=== PATIENT | male | born 1955 | race Caucasian/White ===

== ENCOUNTER 2025-02-28 09:12 | Emergency (ER) | payer OTHER, SELFPAY ==
[2025-02-28] VITALS (7 sets, daily range): BP systolic 124–135; BP diastolic 64–83; PULSE 69–73; RESP 18; TEMP 36.6; O2SAT 93–96; BMI 34.1
--- NOTE | 2025-02-28 10:21 | EKG_ITS ---
[place] [id number] [place] [id number] Test Date: 2025-02-28 Pat Name: Enrique Khoury Department: [facility] Room: Gender: Male Machine Ii Coremaker: YARI : 1955 Requested By: Order Number: [id number] Reading MD: Khoi Srinivasan Measurements Intervals [place] Rate: 75 P: 61 WI: 188 QRS: 27 QRSD: 164 T: 25 QT: 426 QTc: 475 Interpretive Statements Normal sinus rhythm with sinus arrhythmia Right bundle branch block Septal infarct , age undetermined Electronically Signed On 03-02-2025 13:44:13 PDT by Khoi Srinivasan
[2025-02-28 10:26] LABS: Add Manual Diff / Slide Review NO; Hematocrit 48.1 % (41-53); Hemoglobin 16.5 g/dL (13.5-17.5); Lymphocytes Absolute Auto 3500 /uL (1100-4500); Mean Corpuscular HGB Conc 34.3 % (30-36); Mean Corpuscular Hemoglobin 31.6 PG (26-34); Mean Corpuscular Volume 92.3 fL (80-100); Platelet Count 150 X10^3/uL (150-400)
[2025-02-28 10:30] LABS: Alanine Aminotransferase 25 IU/L (<50); Albumin 4.6 g/dL (3.5-5.0); Albumin Globulin Ratio 1.5 (1.0-2.8); Alkaline Phosphatase 88 U/L (38-126); Blood Urea Nitrogen 16 mg/dL (9-20); Calcium 9.7 mg/dL (8.4-10.2); Carbon Dioxide 27 mmol/L (22-32); Chloride 102 mmol/L (98-107); Estimated Glomerular Filt Rate > 60 mL/min (>60); Globulin 3.1 g/dL (1.7-4.1); Glucose 145 mg/dL (70-99); HEMOLYSIS < 15 (0-50); Lipase 69 U/L (23-300); Potassium 4.6 mmol/L (3.4-5.1); Sodium 138 mmol/L (137-145); Total Protein 7.7 g/dL (6.3-8.2)
--- NOTE | 2025-02-28 11:55 | ED_ITS ---
HPI - Abdominal Pain General Chief Complaint: Abdominal Pain Stated Complaint: lower left stomach pain x 1 day Time Seen by Provider: 02/28/25 11:27 Source: patient Mode of arrival: Ambulatory History of Present Illness HPI narrative: 69-year-old male who is here on vacation having acute left lower abdominal pain that started after a meal of ribs last night. Patient denies any prior GI or abdominal issues. No history of abdominal surgeries. Patient denies any symptoms. No other GI symptoms she was having acute dull pain currently maybe a 01/25. Related Data Previous Rx's ?Medication ?Instructions ?Recorded amoxicillin 875 mg-potassium 1 tab PO Q8H #30 tabs clavulanate 125 mg tablet Allergies Allergy/AdvReac Type Severity Reaction Status Date / Time No Known Drug Allergies Allergy Verified 02/28/25 09:36 Review of Systems Review of Systems ROS Unobtainable: All systems reviewed & are unremarkable except as noted in HPI and below Patient History Social History Smoking Status: Never smoker Smoking Status: Never smoker Exam Initial Vital Signs Initial Vital Signs: Vital Signs Temperature 97.9 F 02/28/25 09:35 Pulse Rate 70 02/28/25 09:35 Respiratory Rate 18 02/28/25 09:35 Blood Pressure 124/64 02/28/25 09:35 Pulse Oximetry 96 02/28/25 09:35 Oxygen Delivery Method Room Air 02/28/25 09:35 General: Healthy appearing, in no acute distress. Able to give a complete and coherent history. Well-nourished well-developed HEENT: Moist mucous membranes, normal sclera with reactive pupils, Neck: No JVD, supple Respiratory: Lungs are clear to auscultation, no wheezing no rales no rhonchi. Full and symmetrical air movement Cardiac: Regular rate and rhythm no murmurs no bruits Abdomen: Soft, mildly tender to palpation left lower quadrant, no rebound or guarding, no flank pain Skin: Warm and dry, no rashes Neurologic: Grossly neurologically intact with no obvious asymmetries or abnormalities Extremities: No trauma, well perfused Psych: Cooperative, appropriate insight and affect Course Course Course Narrative: Patient is pain is tolerable but is dull and achy and continues to be present. Orders Ordered: ED Orders 02/28/25 11:55 CT abdomen pelvis w con Stat Discontinued Medications Sodium Chloride (Normal Saline 0.9%) 1,000 mls @ 1,000 mls/hr IV BOLUS ONE Stop: 02/28/25 13:09 Last Infusion: 02/28/25 13:32 Dose: Infused Documented By: Admin: 02/28/25 12:17 Dose: 1,000 mls/hr Documented By: JEFERSON Ondansetron HCl (Ondansetron 4 Mg/2 Ml Inj) 4 mg IV NOW PRN PRN Reason: Nausea And Vomiting Ondansetron HCl (Ondansetron 4 Mg Odt) 4 mg PO NOW PRN PRN Reason: Nausea And Vomiting Reevaluation(s) Reevaluation #1: Upon re-evaluation, patient's pain is slightly better with some fluids but dull achiness is still there. Vital Signs Vital signs: Vital Signs - 8 hr 02/28/25 09:35 02/28/25 10:07 02/28/25 10:30 Temperature 97.9 F Pulse Rate 70 73 71 Respiratory Rate 18 Blood Pressure 124/64 Pulse Oximetry 96 95 94 Oxygen Delivery Method Room Air 02/28/25 10:31 02/28/25 10:31 02/28/25 11:00 Temperature Pulse Rate 69 70 Respiratory Rate Blood Pressure 131/72 Pulse Oximetry 94 93 Oxygen Delivery Method 02/28/25 11:00 02/28/25 11:30 02/28/25 11:30 Temperature Pulse Rate 73 Respiratory Rate Blood Pressure 135/73 131/83 Pulse Oximetry 95 Oxygen Delivery Method 02/28/25 12:00 02/28/25 12:00 Temperature Pulse Rate 73 Respiratory Rate Blood Pressure 135/82 Pulse Oximetry 95 Oxygen Delivery Method MDM - Abdominal Pain Differential Diagnosis Differential diagnosis: Likely abdominal pain, acute appendicitis, calculus of kidney, diverticulitis, gastroenteritis and small bowel obstruction Condition is:: Improved Condition is at treatment goal?: No Lab Data 02/28/25 10:09 02/28/25 10:09 Labs: Lab Results 02/28/25 02/28/25 Range/Units 10:09 11:21 WBC 9.2 (4.5-11.0) X10^3/uL RBC 5.21 (4.5-5.9) X10^6/uL Hgb 16.5 (13.5-17.5) g/dL Hct 48.1 (41-53) % MCV 92.3 (80-100) fL MCH 31.6 (26-34) PG MCHC 34.3 (30-36) % RDW 13.1 (11.6-14.8) % Plt Count 150 (150-400) X10^3/uL Neut % (Auto) 50.6 (50-75) % Lymph % (Auto) 38.3 (25-40) % [place] % (Auto) 9.3 (3-14) % Eos % (Auto) 1.2 L (2-4) % Baso % (Auto) 0.6 (0-2) % Neut # (Auto) 4700 (7434-3211) /uL Lymph # (Auto) 3500 (2829-9492) /uL [place] # (Auto) 900 (0-900) /uL Eos # (Auto) 100 (0-450) /uL Baso # (Auto) 100 (0-100) /uL Sodium 138 (137-145) mmol/L Potassium 4.6 (3.4-5.1) mmol/L Chloride 102 (98-107) mmol/L Carbon Dioxide 27 (22-32) mmol/L BUN 16 (9-20) mg/dL Creatinine 0.69 (0.66-1.25) mg/dL Estimated GFR > 60 (>60) mL/min BUN/Creatinine Ratio 23.2 H (6-22) Glucose 145 H (70-99) mg/dL Calcium 9.7 (8.4-10.2) mg/dL Total Bilirubin 0.8 (0.2-1.3) mg/dL AST 27 (17-59) IU/L ALT 25 (<50) IU/L Alkaline Phosphatase 88 (38-126) U/L Total Protein 7.7 (6.3-8.2) g/dL Albumin 4.6 (3.5-5.0) g/dL Globulin 3.1 (1.7-4.1) g/dL Albumin/Globulin Ratio 1.5 (1.0-2.8) Lipase 69 (23-300) U/L Urine RBC 1-5/hpf (0-5/HPF) Urine WBC >100/hpf H (0-5/HPF) Ur Squamous Epith Cells None seen (0-5/HPF) Urine Bacteria Many (>30) H (None) Ur Culture Indicated? Specimen cultured Vol Urine Centrifuged 10ml (spun) Point of care testing: Urine Dip Bedside Urine Glucose 500 mg/dl Bedside Urine Bilirubin - Negative Bedside Urine Ketone - Negative Urine Specific [place] 1.015 Bedside Urine Occult Blood + Bedside Urine pH 6.0 Bedside Urine Protein +/- 15 Bedside Urine Urobilinogen - Negative Bedside Urine Nitrite + Positive Bedside Urine Leukocytes ++ 125 Esterase ECG Data Interpretation: EKG showed normal axis normal sinus rhythm with sinus arrhythmia, right bundle branch block, normal RI intervals, no STT wave changes MDM Narrative Medical decision making narrative: Patient's CT abdomen and pelvis which showed to have an acute diverticulitis picture. We will treat with Augmentin 3 times a day along with going on a liquid diet. Advised to follow up in the ER for any worsening pain Discharge Plan Departure Patient Disposition: Home Clinical Impression: Diverticulitis Instructions: DI for Diverticulitis Activity Restrictions/Additional Instructions: Go on a liquid diet for now until pain resolves, return to the ED if pain worsens or persists. Prescriptions: New amoxicillin-pot clavulanate 875-125 mg tablet 1 tab PO Q8H Qty: 30 0RF Stand Alone Forms: Patient Portal/API
--- NOTE | 2025-02-28 11:55 | DI.CT.S_ITS ---
PROCEDURE: CT ABDOMEN PELVIS W CON INDICATIONS: llq acute pain TECHNIQUE: After the administration of intravenous contrast, axial sections acquired from the lung bases to the pubic symphysis. Coronal and sagittal reformats were performed. For radiation dose reduction, the following was used: automated exposure control, adjustment of mA and/or kV according to patient size. COMPARISON: None. FINDINGS: Image quality: Diagnostic. Lower Chest: Densely calcified coronary arteries. Normal heart size. Lung bases are clear. ABDOMEN: Liver: No solid mass. Gallbladder: Minimal layering gravel in the gallbladder. No gallbladder wall thickening. Biliary ducts: No biliary dilation. Pancreas: No ductal dilation. Spleen: Size is within normal limits. Adrenal Glands: No adrenal nodules. Kidneys and Ureters: No hydronephrosis. No solid mass. No complex renal cystic lesion which requires follow up. Stomach and Bowel: Large duodenal diverticulum containing air in debris. Normal colonic caliber, without significant wall thickening. Acute proximal sigmoid diverticulitis. Findings include a large anteriorly directed diverticulum which is inflamed with surrounding inflammation in the adjacent fat. Reference axial image 133 of series 2. No perforation. No free air or abscess or free fluid. Peritoneum: No abnormal intraperitoneal fluid. No free air. Ventral Wall: No significant ventral hernia. Abdominal Nodes: No retroperitoneal or mesenteric adenopathy by size criteria. Vessels: Aorta and inferior vena cava are normal in size. PELVIS: Pelvic Organs: Mild prostatomegaly the. Bladder: Distended with wall thickening and minimal trabeculations. Pelvic Nodes: No enlarged lymph nodes. Miscellaneous: Bilateral fat containing inguinal hernias are seen. Bones: No aggressive osseous abnormality. IMPRESSION: 1. Acute non complicated sigmoid diverticulitis involving the proximal sigmoid. Findings are centered around a large anteriorly directed inflamed diverticulum. 2. Advanced coronary artery calcifications. 3. Bladder has a mildly thickened wall with trabeculations. Suspect bladder outlet obstruction. 4. Large duodenal diverticulum containing air and debris incidentally noted. This typically is an asymptomatic finding. 5. Gallbladder gravel. Dictated by: Nehemiah Odom M.D. on 02/28/2025 at 13:05 Approved by: Nehemiah Odom M.D. on 02/28/2025 at 13:09
[2025-02-28 12:17] LABS: Culture Indicated Urine Specimen Cultured
[2025-02-28] MEDS: SODIUM CHLORIDE 0.9% 1,000 ML 1000 ML IV (12:17)
== END 2025-02-28 13:34 | disposition home or self-care (01) ==
PROVIDERS: Emergency Provider Family Medicine
DX: K57.32 Diverticulitis of large intestine without perforation or abscess without bleeding (principal); I45.10 Unspecified right bundle-branch block
CPT/HCPCS: 36415; 74177; 80053; 81003; 81015; 83690; 85025; 87077; 87086; 87186; 93005; 96360; 99284